=== PATIENT | male | born 1945 | race Caucasian/White ===

== ENCOUNTER 2017-04-06 20:33 | Emergency (ER) | payer OTHER ==
[~2017-04-06] VITALS: Ht 172.7 cm; Wt 88.0 kg
[~2017-04-06 20:33] MED LIST: ATEN-104 PO; ECOT81TA2 PO; GLIP5 PO; LEVO75TA42 PO; LISI-366 PO; OMEP20TA PO; PLAV75TA PO; TUMS CHEW; VERA120T3 PO
[2017-04-06 20:36] VITALS: BP 150/91; PULSE 63; RESP 16; TEMP 98.4; O2SAT 97
--- NOTE | 2017-04-06 21:30 | PD ---
Physical Exam Date Seen by Provider: Apr 06, 2017 Time Seen by Provider: 21:27 Data Data Last Documented VS Vital Signs Date Time Temp Pulse Resp B/P Pulse Ox O2 Delivery O2 Flow Rate FiO2 04/06/17 20:36 98.4 63 16 150/91 97 Room Air [facility] Supervised Visit with STEPHANE: No Narrative Course 71 YO M with complaint of no urine output since discharged ~1015 this AM. Endorse pain at tip of penis. Patient had outpatient cystoscopy and TURBT with Dr. Subramanian. Vitals reviewed. Patient seen in triage, awaiting bed placement. Blanca Spangler Apr 06, 2017 21:30
[2017-04-06] MEDS ORDERED: LANTINJ SQ (22:47)
[2017-04-06] MEDS ORDERED: PANT20TA2 PO (22:47)
[2017-04-06] MEDS ORDERED: DOXA1TAB35 PO (22:47)
[2017-04-06] MEDS ORDERED: ATEN100T PO (22:47)
[2017-04-06] MEDS ORDERED: FENO54TA PO (22:47)
[2017-04-06] MEDS ORDERED: LEVO100T5 PO (22:47)
[2017-04-06] MEDS ORDERED: VERA180C3 PO (22:47)
[2017-04-06] MEDS ORDERED: ATOR20TA15 PO (22:47)
[2017-04-06] MEDS ORDERED: LISI40TA PO (22:47)
[2017-04-06] MEDS ORDERED: CLOP75TA PO (22:47)
[2017-04-06] MEDS ORDERED: GLIP5TAB8 PO (22:47)
[2017-04-06] MEDS ORDERED: ASPI325T PO (22:47)
[2017-04-06] MEDS ORDERED: ACETAMINOPHEN/HYDROcodone 325 MG/5 MG TAB PO ONE (23:00)
[2017-04-06] MEDS ORDERED: LIDOCAINE 2% JELLY 30 ML TUBE TOPICAL ONE (23:00)
--- NOTE | 2017-04-06 23:31 | PD ---
HPI Chief Complaint: Complaint Time Seen by Provider: 22:50 Travel History International Travel<30 days: No Contact w/Intl Traveler<30days: No Traveled to known affect area: No History of Present Illness HPI Patient is a 71 year old male who comes in complaining of being unable to urinate. He had a cystoscopy performed this morning by Dr. Subramanian and he says he was able to urinate right afterwards, but has not been able to urinate since 10AM. He complains of pain to his penis. He says he has some lower abdominal pain. He he says he has had some blood leaking from his penis. PFSH Past Medical History Asthma: No Blood Disorders: No Anxiety: No Depression: No Heart Rhythm Problems: No Cancer: No Cardiac Catheterization: Yes Cardiovascular Problems: Yes (HX OF [place], HIGH CHOLESTEROL) High Cholesterol: Yes Chemotherapy: No Chest Pain: No Congestive Heart Failure: No COPD: No Diabetes: Yes (TYPE II) Patient Takes Glucophage: No Diminished Hearing: No Endocrine: Yes (DIABETIC) GERD: Yes Genitourinary: Yes (STENT IN EACH KIDNEY) Hepatitis: No Hiatal Hernia: Yes Hypertension: Yes Immune Disorder: No Medical other: Yes (fatty liver) Musculoskeletal: No Neurologic: No Psychiatric: No Reproductive: No Respiratory: No Immunizations Current: Yes Myocardial Infarction: Yes Radiation Therapy: No Sleep Apnea: No Thyroid Disease: Yes Past Surgical History Abdominal Surgery: Yes (CHOLECYSTECTOMY) AICD: No Cardiac Surgery: No Cholecystectomy: Yes Coronary Stent: Yes (X5) Ear Surgery: No Endocrine Surgery: No Eye Surgery: Yes (CATARACTS BILATERALLY) Genitourinary Surgery: No Gynecologic Surgery: No Joint Replacement: No Oral Surgery: Yes (TONSILECTOMY) Pacemaker: No Thoracic Surgery: No Social History Alcohol Use: No Tobacco Use: No (quit 40 yrs ago) Substance Use: No Allergies-Medications (Allergen,Severity, Reaction): Coded Allergies: *MDRO Multi-Drug Resistant Organism (Verified Adverse Reaction, Unknown, ) Per Patient 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 Reported Meds & Prescriptions Reported Meds & Active Scripts Active Reported Doxazosin (Doxazosin Mesylate) 2 Mg Tab 2 Mg PO DAILY Pantoprazole (Pantoprazole Sodium) 20 Mg Tab 20 Mg PO DAILY Fenofibrate 54 Mg Tab 54 Mg PO DAILY Aspirin 325 Mg Tab 325 Mg PO DAILY Lantus Solostar Pen Inj (Insulin Glargine) 300 Unit/3 Ml Pen 18 Units SQ Clopidogrel (Clopidogrel Bisulfate) 75 Mg Tab 75 Mg PO DAILY Lisinopril 40 Mg Tab 40 Mg PO DAILY Atorvastatin (Atorvastatin Calcium) 20 Mg Tab 20 Mg PO HS Atenolol 100 Mg Tab 100 Mg PO DAILY Verapamil SR (Verapamil HCl) 180 Mg Cap 180 Mg PO DAILY Glipizide 5 Mg Tab 5 Mg PO DAILY Take 30 minutes before a meal Levothyroxine (Levothyroxine Sodium) 100 Mcg Tab 100 Mcg PO DAILY Review of Systems Except as stated in HPI: all other systems reviewed are Neg General / Constitutional: No: Fever, Chills HENT: No: Headaches, Lightheadedness Cardiovascular: No: Chest Pain or Discomfort Respiratory: No: Shortness of Breath Gastrointestinal: Positive: Abdominal Pain, No: Nausea, Vomiting Genitourinary: Positive: Decreased Urinary Output Skin: No Rash, No Change in Pigmentation Neurologic: No: Weakness, Dizziness Physical Exam Narrative GENERAL: Awake and alert, in no acute distress. SKIN: Focused skin assessment warm/dry. HEAD: Atraumatic. Normocephalic. EYES: Pupils equal and round. No scleral icterus. ENT: Mucous membranes pink and moist. NECK: Trachea midline. No JVD. CARDIOVASCULAR: Regular rate and rhythm. No murmur appreciated. RESPIRATORY: No accessory muscle use. Clear to auscultation. Breath sounds equal bilaterally. GASTROINTESTINAL: Abdomen soft, nondistended. Distended bladder, mildly tender to palpation. MUSCULOSKELETAL: No obvious deformities. No clubbing. No cyanosis. No edema. NEUROLOGICAL: Awake and alert. No obvious cranial nerve deficits. Motor grossly within normal limits. Normal speech. PSYCHIATRIC: Appropriate mood and affect; insight and judgment normal. Data Data Last Documented VS Vital Signs Date Time Temp Pulse Resp B/P Pulse Ox O2 Delivery O2 Flow Rate FiO2 04/06/17 20:36 98.4 63 16 150/91 97 Room Air Orders Acetamin-Hydrocod 325-5 Mg ([place] 5-325 (04/06/17 23:00) Complete Blood Count With Diff (04/06/17 22:52) Basic Metabolic Panel (Bmp) (04/06/17 22:52) Act Partial Throm Time (Ptt) (04/06/17 22:52) Prothrombin Time / Inr (Pt) (04/06/17 22:52) Iv Access Insert/Monitor (04/06/17 22:52) Urinalysis - C+S If Indicated (04/06/17 22:52) Urinary Catheter Management BRANDON.Q8H (04/06/17 22:52) Lidocaine 2% Jelly (Xylocaine 2% Jelly) (04/06/17 23:00) Urine Culture (04/06/17 23:45) Labs Laboratory Tests Test 04/06/17 04/06/17 23:35 23:45 White Blood Count 7.0 TH/MM3 Red Blood Count 4.18 MIL/MM3 Hemoglobin 12.5 GM/DL Hematocrit 36.5 % Mean Corpuscular Volume 87.5 FL Mean Corpuscular Hemoglobin 29.9 PG Mean Corpuscular Hemoglobin 34.2 % Concent Red Cell Distribution Width 13.7 % Platelet Count 88 TH/MM3 Mean Platelet Volume 8.8 FL Neutrophils (%) (Auto) 73.7 % Lymphocytes (%) (Auto) 13.4 % Monocytes (%) (Auto) 11.1 % Eosinophils (%) (Auto) 1.3 % Basophils (%) (Auto) 0.5 % Neutrophils # (Auto) 5.2 TH/MM3 Lymphocytes # (Auto) 0.9 TH/MM3 Monocytes # (Auto) 0.8 TH/MM3 Eosinophils # (Auto) 0.1 TH/MM3 Basophils # (Auto) 0.0 TH/MM3 CBC Comment AUTO DIFF Differential Comment AUTO DIFF CONFIRMED Platelet Estimate LOW Platelet Morphology Comment NORMAL Prothrombin Time 11.9 SEC Prothromb Time International 1.1 RATIO Ratio Activated Partial 26.4 SEC Thromboplast Time Sodium Level 134 MEQ/L Potassium Level 4.2 MEQ/L Chloride Level 102 MEQ/L Carbon Dioxide Level 23.5 MEQ/L Anion Gap 9 MEQ/L Blood Urea Nitrogen 32 MG/DL Creatinine 1.84 MG/DL Estimat Glomerular Filtration 36 ML/MIN Rate Random Glucose 212 MG/DL Calcium Level 9.1 MG/DL Urine Color RED Urine Turbidity HAZY Urine pH 5.5 Urine Specific [place] 1.015 Urine Protein 100 mg/dL Urine Glucose (UA) NEG mg/dL Urine Ketones NEG mg/dL Urine Occult Blood MOD Urine Nitrite NEG Urine Bilirubin NEG Urine Urobilinogen LESS THAN 2.0 MG/DL Urine Leukocyte Esterase NEG Urine RBC /hpf Urine WBC 28 /hpf Urine Bacteria FEW /hpf Urine Hyaline Casts 5 /lpf Microscopic Urinalysis Comment CATH-CULTURE IND MDM Medical Decision Making Medical Screen Exam Complete: Yes Emergency Medical Condition: Yes Medical Record Reviewed: Yes Differential Diagnosis Urinary obstruction versus UTI versus procedural complication Narrative Course Patient is a 71-year-old male comes in because he is unable to urinate. Exam shows a painful distended bladder. IV status, labs sent. Labs show a creatinine of 1.84, which is slightly elevated from previous. Urinalysis is positive for white blood cells. Nava catheter was inserted with 800 cc of urine out right away. Patient reports feeling better. He'll be discharged with the Nava in place. Given a prescription for Cipro. Advised to follow-up with Dr. Pinto tomorrow. Advised to return to the ED as needed for any worsening symptoms. Diagnosis Primary Impression: Urinary obstruction Patient Instructions: Nava Catheter Placement and Care (ED), General Instructions, Urinary Tract Infection in Men (ED) Additional Instructions: Follow up with Dr. Subramanian. Take all of your antibiotics. Return to the ED as needed for any worsening symptoms. Scripts Ciprofloxacin (Cipro)500 Mg [id number] Mg PO BID 7 Days Ref 0 Prov:Suki Tse MD 04/07/17 Disposition: 01 DISCHARGE HOME Condition: Stable Suki Tse MD Apr 06, 2017 23:31
[2017-04-06 23:56] LABS: AUTOMATED NEUTROPHIL # 5.2 TH/MM3 (1.8-7.7); BASOPHIL % 0.5 % (0.0-2.0); EOSINOPHIL # 0.1 TH/MM3 (0-0.4); EOSINOPHIL % 1.3 % (0.0-4.0); HEMATOCRIT 36.5 % (39.0-51.0); LYMPH % 13.4 % (9.0-44.0); LYMPHOCYTE # 0.9 TH/MM3 (1.0-4.8); MEAN CELL VOLUME 87.5 FL (80.0-100.0); MEAN CORPUSCULAR HEMOGLOBIN 29.9 PG (27.0-34.0); MEAN CORPUSCULAR HGB CONC 34.2 % (32.0-36.0); MONO % 11.1 % (0.0-8.0); NEUT % 73.7 % (16.0-70.0); PLATELET COUNT 88 TH/MM3 (150-450); RED BLOOD COUNT 4.18 MIL/MM3 (4.50-5.90); RED CELL DISTRIBUTION WIDTH 13.7 % (11.6-17.2)
[2017-04-07 00:02] LABS: HEMO FLAGS AUTO DIFF
[2017-04-07 00:13] LABS: APTT (PATIENT) 26.4 SEC (24.3-30.1); INTERNATIONAL NORMALIZED RATIO 1.1 RATIO; PROTHROMBIN TIME - PATIENT 11.9 SEC (9.8-11.6)
[2017-04-07 00:23] LABS: BICARBONATE 23.5 MEQ/L (21.0-32.0); POTASSIUM 4.2 MEQ/L (3.5-5.1)
[2017-04-07 00:37] LABS: BACTERIA, URINE FEW /hpf; BLOOD, URINE MOD (NEG); GLUCOSE,URINE NEG (NEG); HYALINE CAST, URINE 5 /lpf (RARE); KETONE, URINE NEG (NEG); NITRITE,URINE NEG (NEG); PH, URINE 5.5 (5.0-8.5)
[2017-04-07 00:38] LABS: URINE COLOR RED (YELLW/STRAW)
[2017-04-07 00:39] LABS: COMMENT (UR) CATH-CULTURE IND; CULTURE IF INDICATED CATH CULTURE IND
[2017-04-07 00:58] LABS: PLATELET ESTIMATE SMEAR LOW (NORMAL); PLATELET MORPHOLOGY NORMAL (NORMAL); SCAN/DIFF AUTO DIFF CONFIRMED
[2017-04-07] MEDS ORDERED: CIPR-9 PO (01:16)
[2017-04-07] MEDS ORDERED: PHEN0.4T PO (22:27)
== END 2017-04-07 02:03 | disposition home or self-care (01) ==
LOC: NEPC 20:33
DX: N13.9 Obstructive and reflux uropathy, unspecified (principal); E11.9 Type 2 diabetes mellitus without complications; I10 Essential (primary) hypertension; E78.00 Pure hypercholesterolemia, unspecified; K21.9 Gastro-esophageal reflux disease without esophagitis; K76.0 Fatty (change of) liver, not elsewhere classified; I25.2 Old myocardial infarction; Z79.82 Long term (current) use of aspirin; Z79.899 Other long term (current) drug therapy
CPT/HCPCS: 51702; 80048; 81001; 85025; 85610; 85730; 87086; 99283

== ENCOUNTER 2017-04-07 21:16 | Emergency (ER) | payer OTHER ==
[~2017-04-07] VITALS: Ht 172.7 cm; Wt 95.0 kg
[~2017-04-07 21:16] MED LIST changes: +ASPI325T PO; -ATEN-104 PO; +ATEN100T PO; +ATOR20TA15 PO; +CIPR-9 PO; +CLOP75TA PO; +DOXA1TAB35 PO; -ECOT81TA2 PO; +FENO54TA PO; -GLIP5 PO; +GLIP5TAB8 PO; +LANTINJ SQ; +LEVO100T5 PO; -LEVO75TA42 PO; -LISI-366 PO; +LISI40TA PO; -OMEP20TA PO; +PANT20TA2 PO; -PLAV75TA PO; -TUMS CHEW; -VERA120T3 PO; +VERA180C3 PO
[2017-04-07 21:22] VITALS: BP 144/79; PULSE 90; RESP 14; TEMP 99.4; O2SAT 98
--- NOTE | 2017-04-07 22:10 | PD ---
HPI Chief Complaint: Complaint Time Seen by Provider: 22:04 Travel History International Travel<30 days: No Contact w/Intl Traveler<30days: No Traveled to known affect area: No History of Present Illness HPI This 71-year-old male is complaining of a leaky Nava catheter. He had a cystoscopy on Sunday and had trouble urinating after the cystoscopy. The Nava catheter was inserted. 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 KIDNEY) Hepatitis: No Hiatal Hernia: Yes Hypertension: Yes Immune Disorder: No Medical other: Yes (GERD) Musculoskeletal: No Neurologic: No Psychiatric: No Reproductive: No Respiratory: No Immunizations Current: Yes Myocardial Infarction: Yes Radiation Therapy: No Sleep Apnea: No Thyroid Disease: Yes Tetanus Vaccination: Unknown Influenza Vaccination: No Past Surgical History Abdominal Surgery: Yes (CHOLECYSTECTOMY) AICD: No Cardiac Surgery: No Cholecystectomy: Yes Coronary Stent: Yes (X5) Ear Surgery: No Endocrine Surgery: No Eye Surgery: Yes (CATARACTS BILATERALLY) Genitourinary Surgery: No Gynecologic Surgery: No Joint Replacement: No Oral Surgery: Yes (TONSILECTOMY) Pacemaker: No Thoracic Surgery: No Other Surgery: Yes (cholecystectomy, tonsillectomy) Social History Alcohol Use: No Tobacco Use: No (quit 40 yrs ago) Substance Use: No Allergies-Medications (Allergen,Severity, Reaction): Coded Allergies: *MDRO Multi-Drug Resistant Organism (Verified Adverse Reaction, Unknown, ) Per Patient 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 Reported Meds & Prescriptions Reported Meds & Active Scripts Active Pyridium (Phenazopyridine HCl) 100 Mg Tab 100 Mg PO Q8H PRN Cipro (Ciprofloxacin HCl) 500 Mg Tab 500 Mg PO BID 7 Days Reported Doxazosin (Doxazosin Mesylate) 2 Mg Tab 2 Mg PO DAILY Pantoprazole (Pantoprazole Sodium) 20 Mg Tab 20 Mg PO DAILY Fenofibrate 54 Mg Tab 54 Mg PO DAILY Aspirin 325 Mg Tab 325 Mg PO DAILY Lantus Solostar Pen Inj (Insulin Glargine) 300 Unit/3 Ml Pen 18 Units SQ Clopidogrel (Clopidogrel Bisulfate) 75 Mg Tab 75 Mg PO DAILY Lisinopril 40 Mg Tab 40 Mg PO DAILY Atorvastatin (Atorvastatin Calcium) 20 Mg Tab 20 Mg PO HS Atenolol 100 Mg Tab 100 Mg PO DAILY Verapamil SR (Verapamil HCl) 180 Mg Cap 180 Mg PO DAILY Glipizide 5 Mg Tab 5 Mg PO DAILY Take 30 minutes before a meal Levothyroxine (Levothyroxine Sodium) 100 Mcg Tab 100 Mcg PO DAILY Review of Systems General / Constitutional: No: Fever, Chills Eyes: No: Diploplia HENT: No: Headaches Cardiovascular: No: Chest Pain or Discomfort, Palpitations Respiratory: No: Cough, Shortness of Breath Gastrointestinal: No: Vomiting, Diarrhea Genitourinary: Positive: Decreased Urinary Output Musculoskeletal: No: Myalgias, Arthralgias Physical Exam Narrative GENERAL: Well-developed male SKIN: Focused skin assessment warm/dry. HEAD: Atraumatic. Normocephalic. EYES: Pupils equal and round. No scleral icterus. No injection or drainage. ENT: No nasal bleeding or discharge. Mucous membranes pink and moist. NECK: Trachea midline. No JVD. GASTROINTESTINAL: Abdomen soft, non-tender, nondistended. Hepatic and splenic margins not palpable. He is having drainage of urine around the catheter MUSCULOSKELETAL: No obvious deformities. No clubbing. No cyanosis. No edema. NEUROLOGICAL: Awake and alert. No obvious cranial nerve deficits. Motor grossly within normal limits. Normal speech. PSYCHIATRIC: Appropriate mood and affect; insight and judgment normal. Data Data Last Documented VS Vital Signs Date Time Temp Pulse Resp B/P Pulse Ox O2 Delivery O2 Flow Rate FiO2 04/07/17 21:45 20 04/07/17 21:22 99.4 90 144/79 98 Room Air Orders Bladder/Catheter Irrigation (04/07/17 22:25) Phenazopyridine (Pyridium) (04/07/17 22:30) [facility] Medical Decision Making Medical Screen Exam Complete: Yes Emergency Medical Condition: Yes Medical Record Reviewed: Yes Differential Diagnosis Differential includes blocked Nava catheter Narrative Course Catheter was irrigated with good results. He will be given Pyridium as he is complaining of some burning. Diagnosis Primary Impression: Obstructed Nava catheter Scripts Phenazopyridine (Pyridium)100 Mg [id number] Mg PO Q8H PRN (DYSURIA) #20 TAB Ref 0 Prov:Bud Childs MD 04/07/17 Disposition: 01 DISCHARGE HOME Condition: Stable Bud Childs MD Apr 07, 2017 22:10
[2017-04-07] MEDS ORDERED: PHEN0.4T PO (22:27)
[2017-04-07] MEDS ORDERED: PHENAZOPYRIDINE HCL 200 MG TAB PO ONE (22:30)
== END 2017-04-07 22:59 | disposition home or self-care (01) ==
LOC: PHED 21:16
DX: T83.098A Other mechanical complication of other urinary catheter, initial encounter (principal)
CPT/HCPCS: 99283

== ENCOUNTER 2017-04-08 02:59 | Emergency (ER) | payer OTHER ==
[~2017-04-08] VITALS: Ht 172.7 cm; Wt 94.5 kg
[~2017-04-08 02:59] MED LIST changes: +ATEN-104 PO; +ECOT81TA2 PO; +GLIP5 PO; +LEVO75TA42 PO; +LISI-366 PO; +OMEP20TA PO; +PHEN0.4T PO; +PLAV75TA PO; +TUMS CHEW; +VERA120T3 PO
[2017-04-08 03:04] VITALS: BP 130/72; PULSE 92; RESP 20; TEMP 98.3; O2SAT 96
--- NOTE | 2017-04-08 03:35 | PD ---
HPI Chief Complaint: Complaint Time Seen by Provider: 03:18 Travel History International Travel<30 days: No Contact w/Intl Traveler<30days: No Traveled to known affect area: No History of Present Illness HPI The patient is a 71-year-old male who had a camera inserted in his bladder on Sunday. He states it found a bladder tumor. Dr. Subramanian as schedule appointment for the patient on the of next month about the bladder tumor. The patient had to come in Sunday night because of urethral obstruction/urinary retention. A Nava catheter was inserted at [facility] Sunday night. The patient came in to [place] emergency department this evening because that catheter, a 20 [place], got occluded with clots. The clots were irrigated and the patient went home. The patient comes in again because the catheter is stopped up. The patient is on Cipro. PFSH Past Medical History Asthma: No Blood Disorders: No Anxiety: No Depression: No Heart Rhythm Problems: No Cancer: No Cardiac Catheterization: Yes Cardiovascular Problems: Yes (HX OF [place], HIGH CHOLESTEROL) High Cholesterol: Yes Chemotherapy: No Chest Pain: No Congestive Heart Failure: No COPD: No Diabetes: Yes (TYPE II) Diminished Hearing: No Endocrine: Yes (DIABETIC) GERD: Yes Genitourinary: Yes (STENT IN EACH KIDNEY) Hepatitis: No Hiatal Hernia: Yes Hypertension: Yes Immune Disorder: No Musculoskeletal: No Neurologic: No Psychiatric: No Reproductive: No Respiratory: No Immunizations Current: Yes Myocardial Infarction: Yes Radiation Therapy: No Sleep Apnea: No Thyroid Disease: Yes Past Surgical History Abdominal Surgery: Yes (CHOLECYSTECTOMY) AICD: No Cardiac Surgery: No Cholecystectomy: Yes Coronary Stent: Yes (X5) Ear Surgery: No Endocrine Surgery: No Eye Surgery: Yes (CATARACTS BILATERALLY) Genitourinary Surgery: No Gynecologic Surgery: No Joint Replacement: No Oral Surgery: Yes (TONSILECTOMY) Pacemaker: No Thoracic Surgery: No Other Surgery: Yes (cholecystectomy, tonsillectomy) Social History Alcohol Use: No Tobacco Use: No (quit 40 yrs ago) Substance Use: No Allergies-Medications (Allergen,Severity, Reaction): Coded Allergies: *MDRO Multi-Drug Resistant Organism (Verified Adverse Reaction, Unknown, ) Per Patient 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 Reported Meds & Prescriptions Reported Meds & Active Scripts Active Pyridium (Phenazopyridine HCl) 100 Mg Tab 100 Mg PO Q8H PRN Cipro (Ciprofloxacin HCl) 500 Mg Tab 500 Mg PO BID 7 Days Reported Doxazosin (Doxazosin Mesylate) 2 Mg Tab 2 Mg PO DAILY Pantoprazole (Pantoprazole Sodium) 20 Mg Tab 20 Mg PO DAILY Fenofibrate 54 Mg Tab 54 Mg PO DAILY Aspirin 325 Mg Tab 325 Mg PO DAILY Lantus Solostar Pen Inj (Insulin Glargine) 300 Unit/3 Ml Pen 18 Units SQ Clopidogrel (Clopidogrel Bisulfate) 75 Mg Tab 75 Mg PO DAILY Lisinopril 40 Mg Tab 40 Mg PO DAILY Atorvastatin (Atorvastatin Calcium) 20 Mg Tab 20 Mg PO HS Atenolol 100 Mg Tab 100 Mg PO DAILY Verapamil SR (Verapamil HCl) 180 Mg Cap 180 Mg PO DAILY Glipizide 5 Mg Tab 5 Mg PO DAILY Take 30 minutes before a meal Levothyroxine (Levothyroxine Sodium) 100 Mcg Tab 100 Mcg PO DAILY Review of Systems Except as stated in HPI: all other systems reviewed are Neg Physical Exam Narrative GENERAL: Well-nourished, well-developed patient in moderate apparent distress with his bladder distention. His vital signs are normal. SKIN: Focused skin assessment warm/dry. HEAD: Normocephalic. EYES: No scleral icterus. No injection or drainage. NECK: Supple, trachea midline. No JVD or lymphadenopathy. CARDIOVASCULAR: Regular rate and rhythm without murmurs, gallops, or rubs. RESPIRATORY: Breath sounds equal bilaterally. No accessory muscle use. GASTROINTESTINAL: Abdomen soft, non-tender, nondistended. The bladder is distended and pressure over the bladder makes the patient quite uncomfortable. There are no lesions on the tip of the penis and the catheter does not appear to be eroding into the head of the penis. MUSCULOSKELETAL: No cyanosis, or edema. BACK: Nontender without obvious deformity. No CVA tenderness. Data Data Last Documented VS Vital Signs Date Time Temp Pulse Resp B/P Pulse Ox O2 Delivery O2 Flow Rate FiO2 04/08/17 03:04 98.3 92 20 130/72 96 Room Air MDM Medical Decision Making Medical Screen Exam Complete: Yes Emergency Medical Condition: Yes Medical Record Reviewed: Yes Differential Diagnosis Catheter irritation and bladder, ureteral obstruction, catheter traumatizing head of penis, Nava catheter obstruction Narrative Course The patient has an obstruction of the Nava catheter with a clot. The urine is basically clear with only a minimal blood-tinged and the clot was apparently lodged in the catheter. There is minimal bleeding from the bladder at this time. Plan: The patient will follow-up Sunday with Dr. Subramanian. He is shown how to remove a clot from the catheter at home. Diagnosis Primary Impression: Obstructed Nava catheter Additional Instructions: The nurse showed you how to remove clots from the Nava catheter at home. Hopefully, he will not need to do that. There is very little blood coming out of her bladder at this time and it is unlikely that another clot will form. Follow-up Sunday with Dr. Subramanian. Med/Other Pt SpecificInfo: No Change to Meds Disposition: 01 DISCHARGE HOME Condition: Stable Reinier Coombs MD Apr 08, 2017 03:35
== END 2017-04-08 03:53 | disposition home or self-care (01) ==
LOC: PHED 02:59
DX: T83.091A Other mechanical complication of indwelling urethral catheter, initial encounter (principal); E11.9 Type 2 diabetes mellitus without complications; I10 Essential (primary) hypertension; E07.9 Disorder of thyroid, unspecified; E78.00 Pure hypercholesterolemia, unspecified; I25.2 Old myocardial infarction; Z79.4 Long term (current) use of insulin; Z86.79 Personal history of other diseases of the circulatory system; Z87.19 Personal history of other diseases of the digestive system; Z87.448 Personal history of other diseases of urinary system
CPT/HCPCS: 99282

== ENCOUNTER 2017-08-10 11:21 | Emergency (ER) | payer OTHER ==
[~2017-08-10] VITALS: Ht 175.3 cm; Wt 105.0 kg
[~2017-08-10 11:21] MED LIST changes: +ASPI-183 PO; -ASPI325T PO; -ATEN-104 PO; -ECOT81TA2 PO; -GLIP5 PO; -LEVO75TA42 PO; -LISI-366 PO; -OMEP20TA PO; -PLAV75TA PO; -TUMS CHEW; -VERA120T3 PO
[2017-08-10 11:29] VITALS: BP 140/71; PULSE 96; RESP 18; TEMP 99.2; O2SAT 96
[2017-08-10] MEDS ORDERED: oxyCODONE/ACETAMINOPHEN 5 MG/325 MG TAB PO ONE (11:45)
--- NOTE | 2017-08-10 13:08 | RADRPT ---
EXAM DATE/TIME: 08/10/2017 12:02 [facility] COMPARISON: No previous studies available for comparison. INDICATIONS : Right hip pain after falling on Sunday. MEDICAL HISTORY : Hypertension. Myocardial infarction. Diabetes mellitus type II. SURGICAL HISTORY : Cholecystectomy. Coronary artery stent. ENCOUNTER: Initial ACUITY: 2 days PAIN SCORE: 10/10 LOCATION: Right hip joint. FINDINGS: Examination of the right hip was performed with AP Pelvis. The primary and secondary trabecular colby daisy of the femoral neck is intact. The hip joint is of normal width without significant sclerosis or bony hypertrophy. The acetabulum is grossly intact. CONCLUSION: No acute fracture or joint dislocation. Ronnie Mathias MD on August 10, 2017 at 13:05 Board Certified Radiologist. This report was verified electronically.
--- NOTE | 2017-08-10 13:10 | RADRPT ---
EXAM DATE/TIME: 08/10/2017 12:10 [facility] COMPARISON: No previous studies available for comparison. INDICATIONS : Lower back pain after falling on Sunday. MEDICAL HISTORY : Hypertension. Myocardial infarction. Diabetes mellitus type II. SURGICAL HISTORY : Coronary artery stent. Cholecystectomy. ENCOUNTER: Initial ACUITY: 2 days PAIN SCORE: 10/10 LOCATION: lower back. FINDINGS: There are five non-rib bearing vertebral bodies. The vertebral bodies are in normal alignment withou t evidence of subluxation. There is moderate diffuse primary degenerative changes throughout the lumb ar spine. No compression fracture injuries are demonstrated. There is disc degeneration with disc spa ce narrowing at multiple levels including L2-3, L4-5 and L5-S1. There are atherosclerotic changes in the aorta. There is good alignment of the SI joints.. CONCLUSION: Moderate diffuse degenerative changes. Ronnie Mathias MD on August 10, 2017 at 13:07 Board Certified Radiologist. This report was verified electronically.
[2017-08-10 13:46] VITALS: PULSE 66; RESP 18; O2SAT 99
--- NOTE | 2017-08-10 14:21 | PD ---
HPI Chief Complaint: Hip Injury Time Seen by Provider: 11:35 Travel History International Travel<30 days: No Contact w/Intl Traveler<30days: No Traveled to known affect area: No History of Present Illness HPI Patient is a 72-year-old male who comes in complaining of hip pain after a fall 2 days ago. He says his was trying to help him and he tripped over and fell onto his right hip. He denies hitting his head. He denies any other injury. He says he was able to walk, but has become progressively more painful. He has not taken anything for pain. 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) Hepatitis: No Hiatal Hernia: Yes Hypertension: Yes Immune Disorder: No Implanted Vascular Access Dvce: No Musculoskeletal: No Neurologic: No Psychiatric: No Reproductive: No Respiratory: No Immunizations Current: Yes Myocardial Infarction: Yes Radiation Therapy: No Sleep Apnea: No Thyroid Disease: Yes Tetanus Vaccination: Unknown Influenza Vaccination: No Past Surgical History Abdominal Surgery: Yes (CHOLECYSTECTOMY) AICD: No Cardiac Surgery: No Cholecystectomy: Yes Coronary Stent: Yes (X5) Ear Surgery: No Endocrine Surgery: No Eye Surgery: Yes (CATARACTS BILATERALLY) Genitourinary Surgery: No Gynecologic Surgery: No Joint Replacement: No Neurologic Surgery: No Oral Surgery: Yes (TONSILECTOMY) Pacemaker: No Thoracic Surgery: No Tonsillectomy: Yes Other Surgery: Yes (cholecystectomy, tonsillectomy) Social History Alcohol Use: No Tobacco Use: No (quit 40 yrs ago) Substance Use: No Allergies-Medications (Allergen,Severity, Reaction): Coded Allergies: *MDRO Multi-Drug Resistant Organism (Verified Adverse Reaction, Unknown, ) Per Patient 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 Reported Meds & Prescriptions Reported Meds & Active Scripts Active Pyridium (Phenazopyridine HCl) 100 Mg Tab 100 Mg PO Q8H PRN Cipro (Ciprofloxacin HCl) 500 Mg Tab 500 Mg PO BID 7 Days Reported Doxazosin (Doxazosin Mesylate) 2 Mg Tab 2 Mg PO DAILY Pantoprazole (Pantoprazole Sodium) 20 Mg Tab 20 Mg PO DAILY Fenofibrate 54 Mg Tab 54 Mg PO DAILY Aspirin 325 Mg Tab 325 Mg PO DAILY Lantus Solostar Pen Inj (Insulin Glargine) 300 Unit/3 Ml Pen 18 Units SQ Clopidogrel (Clopidogrel Bisulfate) 75 Mg Tab 75 Mg PO DAILY Lisinopril 40 Mg Tab 40 Mg PO DAILY Atorvastatin (Atorvastatin Calcium) 20 Mg Tab 20 Mg PO HS Atenolol 100 Mg Tab 100 Mg PO DAILY Verapamil SR (Verapamil HCl) 180 Mg Cap 180 Mg PO DAILY Glipizide 5 Mg Tab 5 Mg PO DAILY Take 30 minutes before a meal Levothyroxine (Levothyroxine Sodium) 100 Mcg Tab 100 Mcg PO DAILY Review of Systems General / Constitutional: No: Fever, Chills HENT: No: Headaches, Lightheadedness Cardiovascular: No: Chest Pain or Discomfort Respiratory: No: Shortness of Breath Gastrointestinal: No: Nausea, Vomiting Musculoskeletal: Positive: Pain, No: Myalgias Skin: No Rash, No Change in Pigmentation Neurologic: No: Weakness, Dizziness Physical Exam Narrative GENERAL: Awake and alert, in no acute distress. SKIN: Focused skin assessment warm/dry. No wounds. HEAD: Atraumatic. Normocephalic. EYES: Pupils equal and round. No scleral icterus. No injection or drainage. ENT: Mucous membranes pink and moist. NECK: Trachea midline. No JVD. No cervical spine tenderness. CARDIOVASCULAR: Regular rate and rhythm. No murmur appreciated. RESPIRATORY: No accessory muscle use. Clear to auscultation. Breath sounds equal bilaterally. MUSCULOSKELETAL: No obvious deformities. No clubbing. No cyanosis. No edema. Tender to palpation in the right sacroiliac area. Pain with movement of the right leg. No thoracic or lumbar tenderness. NEUROLOGICAL: Awake and alert. No obvious cranial nerve deficits. Motor grossly within normal limits. Normal speech. Data Data Last Documented VS Vital Signs Date Time Temp Pulse Resp B/P (MAP) Pulse Ox O2 Delivery O2 Flow Rate FiO2 08/10/17 13:46 66 18 99 08/10/17 11:30 Room Air 08/10/17 11:29 99.2 140/71 (94) Orders Orders Spine, Lumbar Comp W/Obliq (08/10/17 ) Oxycodone-Acetamin 5-325 Mg (Percocet (08/10/17 11:45) Hip, Uni(Ap&Lat) W Ap Pelvis (08/10/17 ) MDM Medical Decision Making Medical Screen Exam Complete: Yes Emergency Medical Condition: Yes Medical Record Reviewed: Yes Differential Diagnosis Hip fracture versus compression fracture versus hip sprain Narrative Course Patient is a 72-year-old male comes in complaining of right hip pain after a fall. Exam shows tenderness to the sacroiliac area. X-ray of the lumbar spine , hip and pelvis performed show no acute abnormalities. Patient given pain medicine. He has pain medicine at home. He is advised take the pain medicine as needed. Advised follow-up with his doctors. Advised to return to the ED as needed for any worsening symptoms. Diagnosis Primary Impression: Hip pain Qualified Codes: M25.551 - Pain in right hip Patient Instructions: General Instructions, Hip Pain (ED) Additional Instructions: Take pain medicine as needed. Follow-up with your doctors. Return to the ED as needed for any worsening symptoms. Disposition: 01 DISCHARGE HOME Condition: Stable Suki Tse MD Aug 10, 2017 14:21
[2017-08-10 14:47] VITALS: BP 165/85
== END 2017-08-10 14:47 | disposition home or self-care (01) ==
LOC: NEPE 11:21
DX: M25.551 Pain in right hip (principal); E78.00 Pure hypercholesterolemia, unspecified; E11.9 Type 2 diabetes mellitus without complications; K21.9 Gastro-esophageal reflux disease without esophagitis; I10 Essential (primary) hypertension; I25.2 Old myocardial infarction; E07.9 Disorder of thyroid, unspecified; Z79.899 Other long term (current) drug therapy; Z79.82 Long term (current) use of aspirin
CPT/HCPCS: 72110; 73502; 99284